=== PATIENT | male | born 1940 ===

== ENCOUNTER 2021-01-19 18:20 | Inpatient (IN) | payer MEDICARE, OTHER ==
[~2021-01-19] VITALS: Ht 180.3 cm; Wt 93.6 kg
--- NOTE | 2021-01-19 18:54 | NUR ---
BEDSIDE REPORT FROM [facility] TRANSFER OF CARE AT THIS TIME
--- NOTE | 2021-01-19 18:58 | NUR ---
PT PRESENTS TO ED A TRANSFER FROM [facility], DIAGNOSED WITH CHOLELITHIASIS. ON ARRIVAL, PT A&O, RESPS EVEN AND UNLABORED, DENIES PAIN. BELONGINGS AT BEDSIDE. CALL LIGHT IN REACH. AWAITING MD AND ORDERS AT THIS TIME.
[2021-01-19 19:46] LABS: BASOPHILS % (AUTO) 0 % (0-1); EOSINOPHILS % (AUTO) 0 % (1-7); LYMPHOCYTES % (AUTO) 10 % (22-44); MEAN CORPUSCULAR HEMOGLOBIN 31.9 pg (27.5-34.5); MEAN CORPUSCULAR HGB CONC 34.2 g/dL (33.2-36.2); MONOCYTES % (AUTO) 8 % (2-9); NEUTROPHILS % (AUTO) 82 % (42-75); PLATELET COUNT 248 x10^3/uL (130-400); RED BLOOD COUNT 4.59 x10^6/uL (4.38-5.82); RED CELL DISTRIBUTION WIDTH 13.7 % (9.4-14.8)
[2021-01-19 19:52] LABS: ALANINE AMINOTRANSFERASE 264 U/L (12-78); ALBUMIN 2.2 g/dL (3.4-5.0); ANION GAP 6 mmol/L (5-15); CALCIUM 8.3 mg/dL (8.5-10.1); CHLORIDE 109 mmol/L (98-107); CREATININE 0.67 mg/dL (0.7-1.3)
[2021-01-19 19:55] LABS: ALKALINE PHOSPHATASE 367 U/L (45-117); BILIRUBIN,TOTAL 2.5 mg/dL (0.2-1.0); TOTAL PROTEIN 6.7 g/dL (6.4-8.2)
--- NOTE | 2021-01-19 21:11 | NUR ---
PT RESTING ON GURNEY ERP TO BEDSIDE FOR RECHECK AND POC DISCUSSION WITH PT
[2021-01-19] MEDS ORDERED: SODIUM CHLORIDE 0.9% 1,000 ML IV ONE (22:00)
[2021-01-19] MEDS ORDERED: morphine SULFATE 10 MG/ML, 1ML IVPush PRN (23:00)
[2021-01-19] MEDS ORDERED: BISACODYL 10 MG SUPP PR PRN (23:00)
--- NOTE | 2021-01-20 00:06 | NUR ---
REPORT TO NATHANIEL ALL QUESTIONS ADDRESSED, PT READY FOR TRANSFER TO FLOOR.
[2021-01-20] MEDS ORDERED: APIX5TAB PO (00:51)
[2021-01-20] MEDS ORDERED: CHOL20008 PO (00:51)
[2021-01-20] MEDS ORDERED: TELM20TA7 PO (00:51)
[2021-01-20] MEDS ORDERED: VIT1CAPS42 PO (00:51)
[2021-01-20] MEDS ORDERED: DILT180C72 PO (00:51)
[2021-01-20] MEDS ORDERED: SIMV10TA18 PO (00:51)
[2021-01-20 01:04] VITALS: BP 116/71
[2021-01-20] MEDS: ENOXAPARIN 100 MG/ML SQ SCH ×2 (01:33→10:20)
[2021-01-20 07:52] LABS: BASOPHILS % (AUTO) 0 % (0-1); EOSINOPHILS % (AUTO) 1 % (1-7); LYMPHOCYTES % (AUTO) 17 % (22-44); MEAN CORPUSCULAR HEMOGLOBIN 31.7 pg (27.5-34.5); MEAN CORPUSCULAR HGB CONC 33.8 g/dL (33.2-36.2); MEAN PLATELET VOLUME 7.8 fL (7.4-10.4); MONOCYTES % (AUTO) 11 % (2-9); NEUTROPHILS % (AUTO) 72 % (42-75); PLATELET COUNT 216 x10^3/uL (130-400); RED BLOOD COUNT 4.09 x10^6/uL (4.38-5.82); RED CELL DISTRIBUTION WIDTH 13.8 % (9.4-14.8)
[2021-01-20 08:00] LABS: ALANINE AMINOTRANSFERASE 206 U/L (12-78); ALBUMIN 2.1 g/dL (3.4-5.0); ANION GAP 4 mmol/L (5-15); CALCIUM 7.7 mg/dL (8.5-10.1); CHLORIDE 111 mmol/L (98-107); CREATININE 0.74 mg/dL (0.7-1.3)
[2021-01-20 08:02] LABS: ALKALINE PHOSPHATASE 317 U/L (45-117); BILIRUBIN,TOTAL 1.4 mg/dL (0.2-1.0); TOTAL PROTEIN 5.9 g/dL (6.4-8.2)
[2021-01-20 08:05] VITALS: BP 125/72
[2021-01-20 13:18] VITALS: BP 114/66
[2021-01-20 19:45] VITALS: BP 144/71
[2021-01-20] MEDS ORDERED: CEFTRIAXONE 2 GM in DEXTROSE 5% 50 ML IVPB ONE (20:00)
[2021-01-20] MEDS ORDERED: DIAZEPAM 5 MG TABLET PO ONE (20:30)
[2021-01-21 01:25] VITALS: BP 119/74
[2021-01-21 05:17] LABS: BASOPHILS % (AUTO) 1 % (0-1); EOSINOPHILS % (AUTO) 1 % (1-7); LYMPHOCYTES % (AUTO) 26 % (22-44); MEAN CORPUSCULAR HEMOGLOBIN 31.5 pg (27.5-34.5); MEAN CORPUSCULAR HGB CONC 33.6 g/dL (33.2-36.2); MEAN PLATELET VOLUME 7.6 fL (7.4-10.4); MONOCYTES % (AUTO) 12 % (2-9); NEUTROPHILS % (AUTO) 61 % (42-75); PLATELET COUNT 247 x10^3/uL (130-400); RED BLOOD COUNT 3.99 x10^6/uL (4.38-5.82); RED CELL DISTRIBUTION WIDTH 13.6 % (9.4-14.8)
[2021-01-21 05:20] LABS: INTERNATIONAL NORMALIZED RATIO 1.09 (0.93-1.1); PROTHROMBIN TIME 11.6 Seconds (9.6-11.5)
[2021-01-21 05:24] LABS: ANION GAP 5 mmol/L (5-15); CALCIUM 8.3 mg/dL (8.5-10.1); CHLORIDE 108 mmol/L (98-107)
[2021-01-21 05:27] LABS: ALANINE AMINOTRANSFERASE 177 U/L (12-78); ALKALINE PHOSPHATASE 327 U/L (45-117); CREATININE 0.73 mg/dL (0.7-1.3); TOTAL PROTEIN 5.7 g/dL (6.4-8.2)
[2021-01-21 08:08] VITALS: BP 127/79
== END 2021-01-21 10:34 | disposition home or self-care (01) | DRG 445 ==
LOC: ED 18:45 → EDIP 21:52 → 4NE 01-20 00:30
PROVIDERS: ADMIT Internal Medicine; ATTEND Family Medicine
DX: K80.62 Calculus of gallbladder and bile duct with acute cholecystitis without obstruction (principal); D68.69 Other thrombophilia; I10 Essential (primary) hypertension; I48.0 Paroxysmal atrial fibrillation; Z53.20 Procedure and treatment not carried out because of patient's decision for unspecified reasons; Z79.01 Long term (current) use of anticoagulants
CPT/HCPCS: 36415; 76700; 80053; 80074; 83735; 85025; 85610; 93005; 99285; G0378; J0696; J7030